=== PATIENT | female | born 1970 | race Two or more races ===

== ENCOUNTER 2017-11-06 23:10 | Emergency (ER) | payer MEDICAID ==
[~2017-11-06] VITALS: Ht 160 cm; Wt 90.6 kg
[~2017-11-06 23:10] MED LIST: GLYB2.5T2 PO; LANS30CA PO; LISI-167 PO; LISI2.5T PO
[2017-11-07 00:23] LABS: BASOPHILS # (AUTO) 0.06 x10^3/uL (0-0.1); BASOPHILS % (AUTO) 1 % (0-1); EOSINOPHILS # (AUTO) 0.07 x10^3/uL (0-0.4); EOSINOPHILS % (AUTO) 1 % (1-7); LYMPHOCYTES # (AUTO) 2.16 x10^3/uL (1-3.4); LYMPHOCYTES % (AUTO) 25 % (22-44); MD NO; MEAN CORPUSCULAR HEMOGLOBIN 30.6 pg (27.0-34.8); MEAN CORPUSCULAR HGB CONC 34.5 g/dL (32.4-35.8); MEAN CORPUSCULAR VOLUME 88.9 fL (80-100); MEAN PLATELET VOLUME 8.5 fL (7.4-10.4); MONOCYTES # (AUTO) 0.55 x10^3/uL (0.2-0.8); MONOCYTES % (AUTO) 6 % (2-9); NEUTROPHILS # (AUTO) 5.92 x10^3/uL (1.8-6.8); NEUTROPHILS % (AUTO) 68 % (42-75); PLATELET COUNT 355 x10^3/uL (130-400); RED BLOOD COUNT 4.58 x10^6/uL (3.82-5.3)
[2017-11-07 00:27] LABS: ALBUMIN 3.6 g/dL (3.4-5.0); ANION GAP 11 mmol/L (5-15); CALCIUM 9.2 mg/dL (8.5-10.1); CHLORIDE 105 mmol/L (98-107); CREATININE 0.99 mg/dL (0.55-1.02)
[2017-11-07 00:30] LABS: TROPONIN I < 0.015 ng/mL (0.000-0.045)
[2017-11-07] MEDS ORDERED: ONDANSETRON ODT 4 MG ONE ×2 (00:47→00:49)
[2017-11-07] MEDS ORDERED: IBUPROFEN 200 MG TABLET PO ONE (01:00)
[2017-11-07] MEDS ORDERED: ONDANSETRON ODT 4 MG PO ONE ×2 (01:00)
[2017-11-07] MEDS ORDERED: IBUPROFEN 200 MG TABLET ONE (01:00)
[2017-11-07 01:17] VITALS: BP 163/97
== END 2017-11-07 01:20 | disposition home or self-care (01) ==
LOC: ED 23:40
DX: G44.219 Episodic tension-type headache, not intractable (principal); R07.89 Other chest pain; R11.0 Nausea; R06.02 Shortness of breath
CPT/HCPCS: 36415; 71045; 80048; 82040; 84484; 85025; 93005; 99285; Q0162

== ENCOUNTER 2019-03-04 22:22 | Observation (INO) | payer MEDICAID ==
[~2019-03-04] VITALS: Ht 154.9 cm; Wt 86.8 kg
[2019-03-04 23:03] LABS: BASOPHILS # (AUTO) 0.07 x10^3/uL (0-0.1); BASOPHILS % (AUTO) 1 % (0-1); EOSINOPHILS # (AUTO) 0.07 x10^3/uL (0-0.4); EOSINOPHILS % (AUTO) 1 % (1-7); LYMPHOCYTES # (AUTO) 2.65 x10^3/uL (1-3.4); LYMPHOCYTES % (AUTO) 32 % (22-44); MD NO; MEAN CORPUSCULAR HEMOGLOBIN 30.9 pg (27.0-34.8); MEAN CORPUSCULAR HGB CONC 33.1 g/dL (32.4-35.8); MEAN CORPUSCULAR VOLUME 93.1 fL (80-100); MEAN PLATELET VOLUME 8.5 fL (7.4-10.4); MONOCYTES # (AUTO) 0.47 x10^3/uL (0.2-0.8); MONOCYTES % (AUTO) 6 % (2-9); NEUTROPHILS # (AUTO) 5.04 x10^3/uL (1.8-6.8); NEUTROPHILS % (AUTO) 61 % (42-75); PLATELET COUNT 364 x10^3/uL (130-400); RED BLOOD COUNT 4.37 x10^6/uL (3.82-5.3); RED CELL DISTRIBUTION WIDTH 12.6 % (9.6-15.2)
--- NOTE | 2019-03-04 23:08 | NUR ---
PT IN CT AT THIS TIME.
[2019-03-04 23:11] LABS: INTERNATIONAL NORMALIZED RATIO 1.02 (0.93-1.1); PROTHROMBIN TIME 10.7 Seconds (9.6-11.5)
[2019-03-04 23:13] LABS: ALANINE AMINOTRANSFERASE 34 U/L (12-78); ALBUMIN 3.7 g/dL (3.4-5.0); ANION GAP 6 mmol/L (5-15); CALCIUM 8.8 mg/dL (8.5-10.1); CHLORIDE 108 mmol/L (98-107); CREATININE 0.96 mg/dL (0.55-1.02)
[2019-03-04 23:17] LABS: ALKALINE PHOSPHATASE 94 U/L (45-117); BILIRUBIN,TOTAL 0.4 mg/dL (0.2-1.0); TOTAL PROTEIN 7.3 g/dL (6.4-8.2); TROPONIN I < 0.015 ng/mL (0.000-0.045)
[2019-03-05] MEDS ORDERED: METF500T17 PO
--- NOTE | 2019-03-05 00:09 | NUR ---
POC DISCUSSED WITH PT AND FAMILY. PT NOT WANTING TO BE ADMITTED. PT WAS STRONGLY ENCOURAGED TO AGREE TO ADMIT. PT PERSISTANT WITH NOT WANTING TO BE ADMITTED. MD INFORMED. MD AT BEDSIDE TO DISCUSS POC.
[2019-03-05] MEDS ORDERED: LORazepam 1MG TABLET PO ONE (01:30)
[2019-03-05 02:05] LABS: HEMOGLOBIN A1C 8.4 % (4.2-6.3)
[2019-03-05] MEDS: ACETAMINOPHEN 325 MG TABLET PO PRN ×2 (02:40→18:15)
[2019-03-05] MEDS ORDERED: LORazepam 0.5MG TABLET ONE (03:24)
[2019-03-05 03:28] VITALS: BP 123/85
[2019-03-05] MEDS ORDERED: LORazepam 0.5MG TABLET PO ONE ×2 (03:30→23:00)
[2019-03-05 04:04] VITALS: BP 122/84
[2019-03-05] MEDS: ASPIRIN 325 MG TABLET EC PO SCH (05:38)
[2019-03-05] MEDS: ENOXAPARIN 40 MG/0.4 ML SQ SCH (05:38)
[2019-03-05 08:05] VITALS: BP 120/80
[2019-03-05] MEDS: PANTOPROZOLE 40MG TABLET PO SCH (08:14)
[2019-03-05] MEDS: INSULIN LISPRO 100 UNITS/ML, PEN SQ-INSULIN SCH ×4 (09:34→20:14)
[2019-03-05 12:57] VITALS: BP 120/78
[2019-03-05 14:09] LABS: CLOSTRIDIUM DIFFICILE ANTIGEN NEGATIVE; CLOSTRIDIUM DIFFICILE TOXIN NEGATIVE (Negative)
[2019-03-05 16:00] VITALS: BP 124/85
[2019-03-05 19:37] VITALS: BP 126/82
[2019-03-05] MEDS ORDERED: ATORVASTATIN 80 MG TABLET PO SCH (21:00)
[2019-03-06 00:15] VITALS: BP 122/71
[2019-03-06 04:00] VITALS: BP 119/81
[2019-03-06] MEDS: ASPIRIN 325 MG TABLET EC PO SCH (05:25)
[2019-03-06] MEDS: ENOXAPARIN 40 MG/0.4 ML SQ SCH (05:25)
[2019-03-06 05:51] LABS: BASOPHILS # (AUTO) 0.03 x10^3/uL (0-0.1); BASOPHILS % (AUTO) 1 % (0-1); EOSINOPHILS % (AUTO) 2 % (1-7); LYMPHOCYTES # (AUTO) 2.05 x10^3/uL (1-3.4); LYMPHOCYTES % (AUTO) 35 % (22-44); MD NO; MEAN CORPUSCULAR HEMOGLOBIN 31.3 pg (27.0-34.8); MEAN CORPUSCULAR HGB CONC 33.3 g/dL (32.4-35.8); MEAN CORPUSCULAR VOLUME 94.1 fL (80-100); MEAN PLATELET VOLUME 8.7 fL (7.4-10.4); MONOCYTES # (AUTO) 0.41 x10^3/uL (0.2-0.8); MONOCYTES % (AUTO) 7 % (2-9); NEUTROPHILS # (AUTO) 3.32 x10^3/uL (1.8-6.8); NEUTROPHILS % (AUTO) 56 % (42-75); PLATELET COUNT 315 x10^3/uL (130-400); RED BLOOD COUNT 4.45 x10^6/uL (3.82-5.3); RED CELL DISTRIBUTION WIDTH 12.8 % (9.6-15.2)
[2019-03-06 05:58] LABS: CHLORIDE 107 mmol/L (98-107)
[2019-03-06 06:04] LABS: ALANINE AMINOTRANSFERASE 38 U/L (12-78); ALBUMIN 3.3 g/dL (3.4-5.0); ALKALINE PHOSPHATASE 94 U/L (45-117); ANION GAP 6 mmol/L (5-15); BILIRUBIN,TOTAL 0.6 mg/dL (0.2-1.0); CALCIUM 8.4 mg/dL (8.5-10.1); CREATININE 0.82 mg/dL (0.55-1.02); TOTAL PROTEIN 6.8 g/dL (6.4-8.2)
[2019-03-06] MEDS: INSULIN LISPRO 100 UNITS/ML, PEN SQ-INSULIN SCH ×2 (08:01→11:26)
[2019-03-06] MEDS: PANTOPROZOLE 40MG TABLET PO SCH (08:01)
[2019-03-06 08:02] VITALS: BP 125/79
[2019-03-06] MEDS ORDERED: ASPI-650 PO (12:18)
[2019-03-06 13:37] VITALS: BP 121/82
== END 2019-03-06 14:12 | disposition home or self-care (01) ==
LOC: ED 23:09 → EDIP 03-05 00:32 → INTOOBSV 03-05 00:32 → 4WST 03-05 01:24
PROVIDERS: ADMIT Family Medicine; ATTEND Family Medicine
DX: G45.9 Transient cerebral ischemic attack, unspecified (principal); R51 Headache; I10 Essential (primary) hypertension; E11.65 Type 2 diabetes mellitus with hyperglycemia; E78.5 Hyperlipidemia, unspecified; K21.9 Gastro-esophageal reflux disease without esophagitis; Z79.01 Long term (current) use of anticoagulants; Z79.84 Long term (current) use of oral hypoglycemic drugs; Z79.899 Other long term (current) drug therapy; Z90.710 Acquired absence of both cervix and uterus
CPT/HCPCS: 36415; 70450; 70551; 80053; 82962; 83036; 84484; 85025; 85610; 87324; 93005; 93306; 93880; 96372; 99284; G0378; J1650; J1815

== ENCOUNTER 2019-04-11 20:34 | Emergency (ER) | payer MEDICAID ==
[~2019-04-11] VITALS: Ht 154.9 cm; Wt 82.7 kg
[2019-04-11 20:40] VITALS: BP 128/80
== END 2019-04-11 21:45 | disposition home or self-care (01) ==
LOC: ED 21:39
DX: H65.02 Acute serous otitis media, left ear (principal); E78.5 Hyperlipidemia, unspecified; I10 Essential (primary) hypertension; E11.9 Type 2 diabetes mellitus without complications; Z86.73 Personal history of transient ischemic attack (TIA), and cerebral infarction without residual deficits
CPT/HCPCS: 70480; 99284